=== PATIENT | female | born 1990 | race African-American/Black ===

== ENCOUNTER 2016-11-13 13:20 | Emergency (ER) | payer OTHER ==
[~2016-11-13] VITALS: Ht 170.2 cm; Wt 49.9 kg
[~2016-11-13 13:20] MED LIST: DOXYCYCLINE 10100 MG PO; IBUPROFEN 600600 M1 PO; NORFLEX100 MG PO
[2016-11-13] MEDS ORDERED: OPCON-A EYE DRO15 M1 OP (14:44)
== END 2016-11-13 14:45 | disposition home or self-care (01) ==
LOC: ER 13:20
DX: H10.13 Acute atopic conjunctivitis, bilateral (principal)